=== PATIENT | female | born 1990 | race Caucasian/White ===

== ENCOUNTER 2018-02-10 08:02 | Outpatient (CLI) | payer OTHER ==
[~2018-02-10] VITALS: Ht 165.1 cm; Wt 81.2 kg
[~2018-02-10 08:02] MED LIST: CALC500C3 PO; CLC100 PO; FRRS300 PO; PRENTAB26 PO
[2018-02-10 08:48] VITALS: Ht 165.1 cm; Wt 81.2 kg
[2018-02-10] MEDS ORDERED: ONDANSETRON 4 MG TAB PO PRN (09:00)
[2018-02-10 09:23] LABS: BASO % 0.2 %; BASO ABS # 0.02 K/uL (0-0.2); EOS % 1.3 %; EOS ABS # 0.11 K/uL (0-0.5); HEMATOCRIT 30.7 % (37-47); HEMOGLOBIN 10.1 g/dL (12.0-16.0); IG# 0.02 K/uL (0.00-0.02); LYMPH % 19.3 %; LYMPH ABS # 1.66 K/uL (1.2-3.4); MEAN CELL VOLUME 83.9 fL (80-100); MEAN CORPUSCULAR HEMOGLOBIN 27.6 pg (25-34); MEAN CORPUSCULAR HGB CONC 32.9 g/dl (32-36); MEAN PLATELET VOLUME 9.1 fL (7.4-10.4); MONO % 6.9 %; MONO ABS # 0.59 K/uL (0.11-0.59); NEUT % 72.1 %; PLATELET COUNT 262 K/uL (130-400); RED CELL DISTRIBUTION WIDTH CV 15.9 % (11.5-14.5); RED CELL DISTRIBUTION WIDTH SD 49.2 fL (36.4-46.3)
[2018-02-10] MEDS ORDERED: OXYCODONE/ACETAMINOPHEN 5-325 TAB PO ONE (09:30)
[2018-02-10 09:56] LABS: ALBUMIN 2.4 gm/dl (3.4-5.0); ALT/SGPT 18 U/L (12-78); AST/SGOT 20 U/L (15-37); BLOOD UREA NITROGEN 7 mg/dl (7-18); CALCIUM 8.5 mg/dl (8.5-10.1); CARBON DIOXIDE 22 mmol/L (21-32); CREATININE 0.48 mg/dl (0.60-1.20); GLUCOSE 81 mg/dl (70-99); POTASSIUM 3.8 mmol/L (3.5-5.1); SODIUM 135 mmol/L (136-145)
[2018-02-10 09:59] LABS: ALKALINE PHOSPHATASE 105 U/L (45-117); TOTAL PROTEIN 6.3 gm/dl (6.4-8.2)
--- NOTE | 2018-02-10 10:54 | Discharge Instructions ---
Discharge Instructions Date of Service Feb 10, 2018. Admission Reason for Admission: Headache Discharge Discharge Diagnosis / Problem: Headache Discharge Goals Goal(s): Continuing OB care Medications Continue Dispensed Medications: other Activity Recommendations Activity Limitations: as noted below SPECIAL CARE INSTRUCTIONS: Call Doctor if: * Regular contractions every 5 minutes or greater than contractions in one hour. * Bleeding * Water breaks or is leaking * Decreased movement * Fever >100.4 degrees F * Pain not relieved by routine measures or pain medication ordered. FOLLOW UP VISIT: Return to Labor and Delivery on for /call for appointment time . Follow-up Visit with: When: . Current Hospital Diet Patient's current hospital diet: Regular OB Diet Discharge Diet Recommended Diet: Regular Diet Pending Studies Studies pending at discharge: yes List of pending studies: Urine culture Work Instructions Return To Work: 1 day Medical Emergencies . Who to Call and When: Medical Emergencies: If at any time you feel your situation is an emergency, please call 911 immediately. . Non-Emergent Contact Non-Emergency issues call your: Specialist Call Non-Emergent contact if: temperature is above 100.5, your pain is not controlled, your pain is worsening . . "Provider Documentation" section prepared by Livia Cooper. .
== END 2018-02-10 11:52 | disposition home or self-care (01) ==
LOC: C.OPB 08:02 → C.LD 08:03 → C.OPB 11:52
PROVIDERS: ATTEND Obstetrics & Gynecology
DX: O99.89 Other specified diseases and conditions complicating pregnancy, childbirth and the puerperium (principal); R51 Headache; O62.9 Abnormality of forces of labor, unspecified; Z3A.38 38 weeks gestation of pregnancy

== ENCOUNTER 2018-03-03 07:19 | Inpatient (IN) | payer BC, OTHER ==
[~2018-03-03] VITALS: Ht 165.1 cm; Wt 81.4 kg
[2018-03-03 07:42] VITALS: Ht 165.1 cm; Wt 81.4 kg
[2018-03-03] MEDS ORDERED: FERR1TAB13 PO (07:45)
[2018-03-03 08:52] LABS: HEMATOCRIT 31.8 % (37-47); HEMOGLOBIN 10.4 g/dL (12.0-16.0); MEAN CELL VOLUME 81.5 fL (80-100); MEAN CORPUSCULAR HEMOGLOBIN 26.7 pg (25-34); MEAN CORPUSCULAR HGB CONC 32.7 g/dl (32-36); MEAN PLATELET VOLUME 9.5 fL (7.4-10.4); PLATELET COUNT 293 K/uL (130-400); RED CELL DISTRIBUTION WIDTH CV 15.5 % (11.5-14.5); RED CELL DISTRIBUTION WIDTH SD 46.3 fL (36.4-46.3); WHITE BLOOD COUNT 10.05 K/uL (4.8-10.8)
[2018-03-03] MEDS ORDERED: LACTATED RINGER'S 1000ML 500 ML IV PRN ×2 (09:12→13:36)
--- NOTE | 2018-03-03 09:12 | Progress Note ---
Progress Note Date of Service March 03, 2018. Progress Note Admit Note 27 F P1001 at 41.4 weeks admitted for induction of labor for post dates . cervix 2-3/70/-3/posterior/vertex/soft. FHT Cat 1. GBS is negative. EFW is 7.5 lbs.
[2018-03-03] MEDS ORDERED: OXYTOCIN 30 UNITS/500ML NSS IV PRN ×2 (09:15→18:00)
[2018-03-03] MEDS: LACTATED RINGER'S 1000ML 1,000 ML IV SCH ×2 (09:51→14:31)
[2018-03-03] MEDS ORDERED: BUPIVACAINE 0.25% 30 ML VIAL ONE (12:39)
[2018-03-03] MEDS ORDERED: EpHEDrine SULFATE INJ 50 MG/ML AMP ONE (12:40)
[2018-03-03] MEDS ORDERED: FENTANYL CITRATE INJ 50 MCG/1 ML 2 ML VIAL ONE (12:40)
[2018-03-03] MEDS ORDERED: FENTANYL 2MCG/ML ROPIV 1.25MG/ML 100ML BAG ONE (12:41)
[2018-03-03] MEDS ORDERED: NALOXONE HCL INJ 1 MG in SODIUM CHLORIDE 0.9% 1000ML 1,000 ML IV PRN (13:36)
[2018-03-03] MEDS ORDERED: ONDANSETRON INJ 2 MG/ML 2 ML VIAL IV PRN (13:45)
[2018-03-03] MEDS ORDERED: EpHEDrine SULFATE INJ 50 MG/ML AMP IV PRN (13:45)
[2018-03-03] MEDS ORDERED: NALBUPHINE HCL INJ 10 MG/ML AMP IV PRN (13:45)
[2018-03-03] MEDS ORDERED: DiphenhydrAMINE HCL 50 MG/ML VIAL IV PRN (13:45)
[2018-03-03] MEDS ORDERED: FENTANYL 2MCG/ML ROPIV 1.25MG/ML 100ML BAG EPI PRN (13:45)
[2018-03-03] MEDS ORDERED: NALOXONE HCL INJ 0.4 MG/1 ML VIAL/CARP IV PRN (13:45)
[2018-03-03] MEDS ORDERED: LACTATED RINGER'S 1000ML 1,000 ML IV SCH (17:57)
[2018-03-03] MEDS ORDERED: ACETAMINOPHEN 325 MG TAB PO PRN (18:00)
[2018-03-03] MEDS ORDERED: MEASLES, MUMPS & RUBELLA VIRUS VIAL SQ. ONE (18:00)
[2018-03-03] MEDS ORDERED: HYDROCORTISONE ACETATE 25 MG SUPP PR PRN (18:00)
[2018-03-03] MEDS ORDERED: LANOLIN OINT EXT PRN (18:00)
[2018-03-03] MEDS ORDERED: DIPHTHERIA/TETANUS/PERTUSSIS 0.5 ML SYR/VIAL IM. ONE (18:00)
[2018-03-03] MEDS ORDERED: SUPERCREAM 0.870 % 15GM JAR EXT PRN (18:00)
[2018-03-03] MEDS ORDERED: BENZOCAINE 20% AER SPR 82.5 GM CAN EXT PRN (18:00)
--- NOTE | 2018-03-03 18:03 | Vaginal Delivery Summary ---
Vaginal Delivery Summary Delivery Note live female over intact perineum YOUNG with Apgars 9/9 weight pending. Delayed cord clamping followed by cord blood collection for stem cells. Placenta delivered spontaneously and intact. Small 1st degree tear repaired with 3/0 Vicryl suture. EBL 250 ml. Final sponge, needle and instrument count are correct. Mom and baby stable.
--- NOTE | 2018-03-03 19:18 | Anesthesia Procedure Note ---
Anesthesia Epidural Removal Nt Date & Time March 03, 2018 at 19:18 Vital Signs Pain Intensity: 0.0 Notes Mental Status: alert / awake / arousable, participated in evaluation Nausea / Vomiting: adequately controlled Pain: adequately controlled Airway Patency, RR, SpO2: stable & adequate BP & HR: stable & adequate Hydration State: stable & adequate Neuraxial Anesthesia: was administered Anesthetic Complications: no major complications apparent, pt satisfied with anesthetic care Epidural: removed without complications, with tip intact
[2018-03-03] MEDS: DOCUSATE SODIUM 100 MG CAP PO SCH (20:05)
[2018-03-03 20:30] VITALS: BP 102/68; PULSE 100; TEMP 36.8; O2SAT 98
[2018-03-03 23:20] VITALS: BP 106/67; PULSE 85; TEMP 37
[2018-03-03] MEDS: IBUPROFEN 600 MG TAB PO PRN (23:30)
[2018-03-04 03:50] VITALS: BP 102/65; PULSE 83; TEMP 36.8
--- NOTE | 2018-03-04 07:06 | OB/GYN Progress Note ---
[employer]ER Progress Note Date of Service March 04, 2018. Subjective conversation w/ patient, physical exam Ambulation: ambulating normally Voiding: no voiding problems Passing Gas: Yes Diet Tolerance: Regular Diet Lochia: Moderate Pain: 2/10 Review of Systems Constitutional: No fever, No chills, No sweats, No weight loss, No weakness, No fatigue, No problem reported Cardiac: No chest pain, No orthopnea, No PND, No edema, No claudication, No palpitations, No problem reported Abdomen: No pain, No nausea, No vomiting, No diarrhea, No constipation, No GI bleeding, No problem reported Female : No see HPI, No dysuria, No urinary frequency, No hematuria, No incontinence, No abnormal vaginal bleeding, No vaginal discharge, No problem reported Objective Vital Signs Date Time Temp Pulse Resp B/P (MAP) Pulse Ox O2 Delivery O2 Flow Rate FiO2 03/04/18 03:50 36.8 83 18 102/65 (77) Room Air 03/03/18 23:20 Room Air 03/03/18 23:20 37.0 85 16 106/67 (80) Room Air 03/03/18 20:30 36.8 100 18 102/68 (79) 98 Room Air Laboratory Results Last 24 Hours Test 03/03/18 08:36 03/04/18 04:44 White Blood Count 10.05 K/uL Red Blood Count 3.90 M/uL Hemoglobin 10.4 g/dL Hematocrit 31.8 % Mean Corpuscular Volume 81.5 fL Mean Corpuscular Hemoglobin 26.7 pg Mean Corpuscular Hemoglobin Concent 32.7 g/dl RDW Standard Deviation 46.3 fL RDW Coefficient of Variation 15.5 % Platelet Count 293 K/uL Mean Platelet Volume 9.5 fL Assessment and Plan Post- Day Number: 1 Continue Routine Care: -Advance activity as tolerated -Continue routine care -Anticipate D/C home tomorrow AM
[2018-03-04 08:00] VITALS: BP 101/62; PULSE 75; TEMP 36.9; O2SAT 98
[2018-03-04] MEDS: DOCUSATE SODIUM 100 MG CAP PO SCH ×2 (08:21→20:03)
[2018-03-04] MEDS: FERROUS SULFATE 325 MG TAB PO SCH (08:21)
[2018-03-04] MEDS: PRENATAL VITAMIN TAB PO SCH (08:22)
[2018-03-04] MEDS: IBUPROFEN 600 MG TAB PO PRN ×3 (08:22→20:05)
[2018-03-04 09:08] LABS: HEMATOCRIT 26.2 % (37-47); HEMOGLOBIN 8.7 g/dL (12.0-16.0)
[2018-03-04 12:00] VITALS: BP 109/74; PULSE 71; TEMP 36.8; O2SAT 98
[2018-03-04 16:15] VITALS: BP 112/72; PULSE 86; TEMP 37.1; O2SAT 98
[2018-03-04] MEDS ORDERED: BISACODYL 5 MG TABEC PO SCH (20:00)
[2018-03-04 23:10] VITALS: BP 103/60; PULSE 74; TEMP 37
[2018-03-05] MEDS: IBUPROFEN 600 MG TAB PO PRN ×2 (00:24→08:27)
[2018-03-05] MEDS ORDERED: BISACODYL 10 MG SUPP PR PRN (07:00)
[2018-03-05 08:00] VITALS: BP 104/64; PULSE 75; TEMP 36.8
[2018-03-05] MEDS: FERROUS SULFATE 325 MG TAB PO SCH (08:27)
[2018-03-05] MEDS: DOCUSATE SODIUM 100 MG CAP PO SCH (08:27)
[2018-03-05] MEDS: PRENATAL VITAMIN TAB PO SCH (08:27)
--- NOTE | 2018-03-05 09:08 | OB/GYN Progress Note ---
ACADEMIC INTERN Progress Note Date of Service: March 05, 2018. Patient is seen and examined. She feels well, no complaints. Ambulating without dizziness Voiding without difficulty Tolerating regular diet with out N&V Bleeding is minimal No fever/ chills/ CP/ SOB/ N&V/ Leg pain Bottle feeding without problems Discussed contraception, plans to use IUD/ Mirena Date Time Temp Pulse Resp B/P (MAP) Pulse Ox O2 Delivery O2 Flow Rate FiO2 03/05/18 08:00 36.8 75 18 104/64 (77) Room Air 03/04/18 23:10 37.0 74 18 103/60 (74) Room Air 03/04/18 23:10 Room Air 03/04/18 16:15 Room Air 03/04/18 16:15 37.1 86 18 112/72 (85) 98 Room Air 03/04/18 12:00 36.8 71 18 109/74 (86) 98 Room Air PE: General: Alert, orientedx3, NAD Abd: soft, NT, fundus firm, below Umbilicus Perineum intact, Lochia rubra minimal Ext; NT, no edema AP: 27 yo s/p , ppd# 2 VSS Afebrile doing well Continue routine care All questions were answered D/C home , f/u in office
--- NOTE | 2018-03-05 09:09 | Discharge Instructions ---
Discharge Instructions Date of Service March 05, 2018. Admission Reason for Admission: Induction Discharge Discharge Diagnosis / Problem: Discharge Goals Goal(s): Routine recovery after delivery Activity Recommendations Activity Limitations: as noted below ACTIVITY RECOMMENDATIONS: * Gradual return to full activity over the next 2-3 weeks. * No lifting - nothing heavier than baby over the next 2-3 weeks. * Do not engage in vigorous exercise, sexual activity or sports until cleared by your physician. * Do not drive or operate any motorized equipment until cleared by your physician. * You may shower/bathe daily. BREAST CARE: If you are not breast feeding: * Wear a supportive bra 24 hours a day for one to two weeks. * Avoid stimulating your breasts and nipples as much as possible during the first few weeks after delivery. * When taking a shower, have the warm water hit your back, not breasts. * When your breasts feel full, apply ice packs. Usually three to four times a day helps ease the discomfort. * Take a mild pain medication (Tylenol/Motrin) when you are uncomfortable. If breast feeding: * Use breast milk to lubricate nipples. Lansinoh cream may be used for sore nipples. You do not need to remove cream prior to breast feeding. If using a different brand of cream, check the label for directions regarding removal of cream prior to nursing. * Wear a supportive bra. * If having problems with breasts or breast feeding, call a senior telecommunications consultant or your health care provider. EPISIOTOMY CARE: After delivery, if you have an episiotomy (stitches), the following steps will ease discomfort and aid healing. * For the first 24 hours after delivery, place ice packs next to your episiotomy to help reduce swelling. * After the first 24 hour-period, sitz baths, either portable or in the tub, are suggested. A shower with a shower arm sprayed over the episiotomy may be comforting. * Santa care should be done after each voiding and bowel movement. Squirt warm water from a plastic bottle over the perineum (region of the body between the anus and urinary opening) and pat dry. * Use Dermoplast to ease discomfort. Shake container. [place] directly over the episiotomy. * Place a Tucks on a clean sanitary pad next to your episiotomy. OVER THE COUNTER MEDICATION: * For discomfort or pain, you may use Acetaminophen (Tylenol), Ibuprofen (Advil ), or Naproxen (Aleve) following the package directions. * For constipation you may use Colace following the package directions. SPECIAL CARE INSTRUCTIONS: When you are discharged from the hospital, it is important for you to follow the instructions listed below: * During the first week at home, you should be able to care for yourself and your baby. In addition, the usual light household activities are encouraged. * Limit your activities to the way you feel. Do not try to clean the house or move furniture. Be sensible. * If you actively engage in sports and have done so up until the time of your delivery, you may resume these activities as soon as you feel able. This may take up to one month or even longer. Use good judgment. * Continue to take your vitamins for at least six weeks after the of your baby. * Your diet need not be limited unless you were on a special diet before your delivery. Breast-feeding mothers need around 2500 calories per day and at least 64-80 ounces of fluid per day (8 to 10 glasses). * You should eat foods from the four major food groups. Crash diets or fad diets are to be avoided. Eating lean meats, fresh fruits and vegetables, low-fat dairy products, high fiber foods and a regular exercise program, will help you get back to your pre- weight without putting your health at risk. * Constipation is sometimes a problem after delivery. Take a mild laxative as needed. If breast feeding, Milk of Magnesia is acceptable to use. You may use a suppository or Fleets enema if no episiotomy. * A daily shower or tub bath is suggested. Be sure to thoroughly and gently dry the perineum. * A bloody vaginal discharge will usually continue until around four weeks post . A small amount of bleeding may continue for as long as six weeks. Vaginal discharge changes from the bright red bleeding after delivery to pink then brownish and finally yellowish-pink before becoming white and disappearing. * Bleeding may increase with activity. Your first period may come in 4-8 weeks. If you are breast feeding, your period may be delayed even longer. * [place] (sex) can begin whenever both you and your partner feel comfortable and do not have any form of genital infection. It is recommended that you wait until after your return appointment and discuss with your physician. If you have questions, please talk to your health care practitioner. A condom should be used to prevent infection and . * Foreplay, gentle intercourse and lubrication is very important the first several times to prevent pain. A water-based lubricant such as K-Y jelly or Astroglide may be used. * Tampons may be used six weeks after delivery. * Douching should be avoided for 6 weeks after delivery. * If you have RH negative blood and your baby is RH positive, you will receive RHOGAM by injection prior to discharge. The nurse will give you a card to keep with you that has the date and place that you received RHOGAM after delivery. * During your care, you had a Rubella screen done to check for the presence of rubella antibodies in your blood. If your test was negative, you will receive a Rubella vaccine prior to discharge. This vaccine may cause a fever, soreness at the injection site and flu-like symptoms. If these symptoms persist, notify your health care practitioner. is not advised for three months after a Rubella vaccine. There is a higher chance of having a baby with defects if conceived within three months of getting the vaccine. * If you were discharged 24 hours from delivery or before 48 hours: Visiting nurses will come to your home 48 hours after discharge to assess you and your baby. The visiting nurse will meet with you while you are in the hospital to arrange a time and get directions to your home. * Verbalizes understanding of car seat law as reviewed with patient nursing. * Car Seat hand-out given and reviewed with patient by nursing. * Shaken baby information reviewed with patient by nursing. Call you doctor if: * Heavy bleeding (saturating several pads an hour) or passing clots the size of your fist. * A fever >101 degrees F (38.3 degrees C) on two occasions four hours apart and/or chills. * Unusual pain in the pelvic or vaginal areas. * "Baby Blues" lasting longer than two weeks. If you have any questions or concerns, call your health care practitioner at . FOLLOW-UP VISIT: * Please call the office at to schedule a 6 week examination. It is important you keep this appointment. * It is important for you to make arrangements for either yearly or twice yearly check-ups thereafter. . Current Hospital Diet Patient's current hospital diet: Regular OB Diet Discharge Diet Recommended Diet: Regular Diet Pending Studies Studies pending at discharge: no Medical Emergencies . Who to Call and When: Medical Emergencies: If at any time you feel your situation is an emergency, please call 911 immediately. . Non-Emergent Contact Non-Emergency issues call your: Specialist Call Non-Emergent contact if: temperature is above 100.5, your pain is not controlled, your pain is worsening, your pain is unusual for you . . "Provider Documentation" section prepared by Livia Cooper. .
[2018-03-05 12:40] VITALS: BP_DIAS 64; PULSE 75; TEMP 36.8
[2018-03-05 13:08] VITALS: BP 106/71; PULSE 84; TEMP 36.6
== END 2018-03-05 13:00 | disposition home or self-care (01) | DRG 775 ==
LOC: C.LD 07:19 → C.OBG 20:51
PROVIDERS: ADMIT Obstetrics & Gynecology; ATTEND Obstetrics & Gynecology
PROC: 10E0XZZ Delivery of Products of Conception, External Approach (ICD-10-PCS; principal; 2018-03-03)
PROC: 0HQ9XZZ Repair Perineum Skin, External Approach (ICD-10-PCS; principal; 2018-03-03)
PROC: 10903ZC Drainage of Amniotic Fluid, Therapeutic from Products of Conception, Percutaneous Approach (ICD-10-PCS; 2018-03-03)
PROC: 3E0P7GC Introduction of Other Therapeutic Substance into Female Reproductive, Via Natural or Artificial Opening (ICD-10-PCS; 2018-03-03)
DX: O48.0 Post-term pregnancy (principal); O70.0 First degree perineal laceration during delivery; Z3A.41 41 weeks gestation of pregnancy; Z37.0 Single live birth